=== PATIENT | female | born 1980 | race Caucasian/White ===

== ENCOUNTER → 2017-05-09 | Outpatient (CLI) | payer OTHER ==
[~2017-05-09] MED LIST: DESO1TAB35 PO; DOCU-131 PO; FOLI1TAB47 PO; IBUP-1222 PO; OXYC-302 PO
== END ==
LOC: STAR 11:09
PROVIDERS: ATTEND Obstetrics & Gynecology
DX: Z02.9 Encounter for administrative examinations, unspecified (principal)

== ENCOUNTER 2017-05-20 10:08 | Day surgery (SDC) | payer OTHER ==
[2017-05-09 11:26] VITALS: BP 124/85
[~2017-05-20] VITALS: Ht 162.6 cm; Wt 69.9 kg
[2017-05-20] MEDS ORDERED: LACTATED RINGERS 1,000 ML IV SCH (10:35)
[2017-05-20 10:43] VITALS: BP 124/85
[2017-05-20] MEDS ORDERED: MIDAZOLAM 1 MG/ML, 2ML ONE (11:42)
[2017-05-20] MEDS ORDERED: GLYCOPYRROLATE 0.2MG/1ML, 5ML ONE (11:43)
[2017-05-20] MEDS ORDERED: DEXAMETHASONE 4 MG/ML, 1ML ONE (11:43)
[2017-05-20] MEDS ORDERED: NEOSTIGMINE 1 MG/ML, 10ML ONE (11:43)
[2017-05-20] MEDS ORDERED: FENTANYL PF 100 MCG/2ML ONE ×3 (11:43→13:33)
[2017-05-20] MEDS ORDERED: PROPOFOL 10 MG/ML, 20ML ONE (11:43)
[2017-05-20] MEDS ORDERED: SUCCINYLCHOLINE 20 MG/ML, 10ML ONE (11:43)
[2017-05-20] MEDS ORDERED: CEFAZOLIN 1,000 MG ONE (11:43)
[2017-05-20] MEDS ORDERED: ONDANSETRON 2MG/ML, 2ML ONE (11:43)
[2017-05-20] MEDS ORDERED: ROCURONIUM 10 MG/ML ONE (11:43)
[2017-05-20 11:51] LABS: HCG UR LOT HCG7030192
[2017-05-20 11:56] LABS: HCG UR OBC PASS
[2017-05-20] MEDS ORDERED: BUPIVACAINE/PF 0.25% ONE (11:58)
[2017-05-20] MEDS ORDERED: EPINEPHRINE 1 MG/ML, 1ML ONE (11:58)
[2017-05-20] MEDS ORDERED: SILVER NITRATE STICK TP ONE (11:58)
[2017-05-20] MEDS ORDERED: SCOPOLAMINE PATCH, 1MG PATCH.TD72 TD ONE ×2 (12:08)
[2017-05-20] MEDS ORDERED: LIDOCAINE PF 2%, 5ML ONE (12:23)
[2017-05-20] MEDS ORDERED: METOCLOPRAMIDE 5 MG/ML, 2ML ONE (12:32)
[2017-05-20] MEDS ORDERED: KETOROLAC 30 MG/1 ML ONE (12:33)
[2017-05-20] MEDS ORDERED: ACETAMINOPHEN 325 MG TABLET PO PRN (13:00)
[2017-05-20] MEDS ORDERED: HYDROmorphone 1 MG/ML, 1ML IV PRN (13:00)
[2017-05-20] MEDS ORDERED: MEPERIDINE/PF 25MG/0.5ML IVPush PRN (13:00)
[2017-05-20] MEDS ORDERED: MIDAZOLAM 1 MG/ML, 2ML IV PRN (13:00)
[2017-05-20] MEDS ORDERED: ONDANSETRON 2MG/ML, 2ML IVPush PRN (13:00)
[2017-05-20] MEDS ORDERED: hydrALAzine 20 MG/ML, 1ML IV PRN (13:00)
[2017-05-20] MEDS ORDERED: DIAZEPAM 5 MG/ML, 2ML IVPush PRN (13:00)
[2017-05-20] MEDS ORDERED: LABETALOL 5MG/ML, 20ML IV PRN (13:00)
[2017-05-20] MEDS ORDERED: ALBUTEROL/IPRATROPIUM 2.5MG/0.5MG, 3 ML NPPB PRN (13:00)
[2017-05-20] MEDS ORDERED: PROMETHAZINE 25 MG/ML, 1ML IV PRN (13:00)
[2017-05-20] MEDS ORDERED: OXYcodone 5 MG/5 ML ORAL.SOL UDC PO PRN (13:00)
[2017-05-20] MEDS ORDERED: ACETAMINOPHEN 650 MG/20.3 ML UDC ONE (13:33)
[2017-05-20] MEDS ORDERED: OXYcodone 5 MG/5 ML ORAL.SOL UDC ONE (13:33)
[2017-05-20] MEDS: FENTANYL PF 100 MCG/2ML IV PRN ×2 (13:43→14:00)
== END 2017-05-20 16:20 ==
LOC: OUT 10:08
PROVIDERS: ATTEND Obstetrics & Gynecology
DX: Z30.2 Encounter for sterilization (principal)
CPT/HCPCS: 58661; 81025; 88302; J0171; J0330; J1100; J1885; J2250; J2405; J2704; J2765; J3010; J3490; J7120; J0690; J2710